=== PATIENT | male | born 1985 | race Caucasian/White ===

== ENCOUNTER → 2019-12-07 | Outpatient (CLI) | payer OTHER ==
[~2019-12-07] MED LIST: ALPRAZOLAM1 MG PO; CELEXA20 MG PO; DILTIAZEM ER180 M2 PO; FLECAINIDE ACE100 MG PO; LIPITOR20 MG PO; OMEPRAZOLE40 MG; TOPROL XL50 MG PO; XANAX1 MG
== END ==
LOC: LAB 14:40
PROVIDERS: ATTEND Internal Medicine Cardiovascular Disease
DX: Z01.812 Encounter for preprocedural laboratory examination (principal); Z20.828 Contact with and (suspected) exposure to other viral communicable diseases

== ENCOUNTER 2019-12-10 16:12 | Inpatient (IN) | payer BC ==
[~2019-12-10] VITALS: Ht 175.3 cm; Wt 99.3 kg
--- NOTE | ~2019-12-10 | P ---
[facility] [place] [address] PROCEDURE REPORT Name: QUINCY LR Room #: 206-P [facility] IN M.R.#: [id number] Admission: 12/10/19 Attend Phys: Kiesha Oleary MD Discharge: 12/11/19 Date of : 83 Report #: [id number] THIS REPORT FOR: cc: Donato Mitchell MD, David B. MD Couchonnal, Luis F. MD ~ CC: Kiesha Mitchell DATE OF SERVICE: 12/11/2019 EP STUDY AND IMPLANTABLE LOOP RECORDER INSERTION PREOPERATIVE DIAGNOSES: 1. Palpitations. 2. Possible supraventricular tachycardia. POSTOPERATIVE DIAGNOSES: 1. Palpitations. 2. Possible supraventricular tachycardia. PROCEDURES PERFORMED: 1. Comprehensive EP studies, CPT code 92191. 2. EP with left atrial pacing and recording, CPT code 10113. 3. Program stimulation pacing after IV drug infusion, CPT code 84444. 4. Implantation of patient activated event recorder, CPT code 57775. HISTORY: The patient is a 34-year-old with history of palpitations, possible SVT and presyncope and syncope who is here for EP study, possible ablation. ANESTHESIA: The patient underwent MAC anesthesia with no anesthesia related complications. DESCRIPTION OF PROCEDURE: The patient underwent informed consent. We discussed the details of the procedure including the risks, which include but not limited to bleeding, vascular damage, stroke, SD as well as damage to yuhaaviatam conduction system requiring permanent pacemaker. He understood these risks and is willing to proceed. The patient was brought to EP laboratory in a fasting and unsedated state, prepped and draped in a sterile fashion. I obtained access to the bilateral femoral veins placing an 8, 7 and 6-Japanese short sheath in the right femoral vein and a 6-Japanese short sheath in the left femoral vein. Under fluoroscopy, I placed 3 quadripolar catheters at the HRA, His and RV positions and decapolar catheter in the coronary sinus with ease. This was utilized for left atrial pacing and recording. [facility] [address] [place] [address] PROCEDURE REPORT Name: QUICNY LR Room #: 206-[facility].#: [id number] Admission: 12/10/19 Attend Phys: Kiesha Oleary MD Discharge: 12/11/19 Date of : 83 Report #: [id number] The patient was in sinus rhythm with sinus cycle length of 610 milliseconds, HI interval 145 milliseconds, QRS duration 94 milliseconds, QT interval 344 milliseconds, AH interval 77 milliseconds, HV interval 45 milliseconds. Atrial pacing was performed and AV block was noted 310 milliseconds. Atrial ERP was noted at 340 milliseconds at [address] cycle length. There was no evidence of any jumps. Double atrial extrastimuli were delivered and no SVT was induced. Ventricular pacing was performed and VA block was noted to be less than 270 milliseconds. Ventricular ERP was noted at 220 milliseconds at [address] cycle length. VA conduction was both midline and decremental. There was no evidence of accessory pathway. Next, isoproterenol was initiated at 2 mcg per minute and AV block was noted at 220 milliseconds. Atrial ERP was noted at 270 milliseconds at a [address] cycle length. Double atrial extrastimuli were delivered and there were occasional single AV james echoes, but no dual AV james echoes and no SVT. VA block was noted to be less than 230 milliseconds. Isoproterenol was then decreased down to 1 mcg per minute and there was no SVT, then I tested on 4 mcg per minute for about 30-40 minutes and then turned off the isoproterenol and continued testing and then after 20 minutes of being off of isoproterenol, we went to 8 mcg per minute of isoproterenol and continued testing. On 8 mcg of isoproterenol AV block was noted to be 210 milliseconds. I continued with aggressive atrial burst pacing, ventricular pacing and I gave up to triple atrial extrastimuli and an occasional single AV james echo was noted. At this time, we had been testing for 2 hours and could not induce any form of SVT. As such, the procedure was concluded. Catheters and sheaths were pulled and hemostasis was obtained and the patient was prepped for implantable loop recorder insertion, injected lidocaine. The device was injected under the skin and a single layer of suture was performed with surgical glue and a dressing placed on the incision site. The device was programmed to look for any forms of SVT greater than 150 beats per minute of more than 16 beats in duration. CONCLUSIONS: 1. No inducible supraventricular tachycardia despite aggressive electrophysiology study lasting 2 hours and high-dose isoproterenol. 2. Normal SA james function. 3. Normal AV james function. 4. Normal His-Purkinje function. 5. No evidence of accessory pathway mediated tachycardia. No evidence of AFib, atrial flutter or atrial tachycardia. 6. Successful implantation of a loop recorder. By: [id number] Simón Ruiz MD /nt
[2019-12-10] MEDS ORDERED: CELEXA20 MG PO (16:49)
[2019-12-10] MEDS ORDERED: DILTIAZEM ER180 M2 PO (16:49)
[2019-12-10] MEDS ORDERED: LIPITOR20 MG PO (16:51)
[2019-12-10] MEDS ORDERED: OMEPRAZOLE40 MG (16:57)
[2019-12-10] MEDS ORDERED: XANAX1 MG (16:58)
[2019-12-10 17:17] LABS: HEMATOCRIT 42.6 % (42.0-52.0); MCH 31.6 pg (26.0-34.0); MCHC 35.1 g/dL (28.0-37.0); MCV 89.8 fL (80.0-100.0); RBC 4.75 mil/uL (4.50-6.00); RDW 13.7 % (10.5-14.5); WBC 10.9 thou/uL (4.0-11.0)
[2019-12-10 17:29] LABS: ANION GAP 10 mmol/L (7-16); BUN 12 mg/dL (7-18); CALCIUM 9.4 mg/dL (8.5-10.1); CHLORIDE 104 mmol/L (98-107); CO2 28 mmol/L (21-32); CREATININE 0.9 mg/dL (0.7-1.3); GLUCOSE 94 mg/dL (74-106); POTASSIUM 4.2 mmol/L (3.5-5.1); SODIUM 142 mmol/L (136-145)
[2019-12-10 17:37] LABS: MAGNESIUM 2.1 mg/dL (1.8-2.4); TROPONIN-I <0.06 ng/mL (<0.06)
[2019-12-10] MEDS ORDERED: FLECAINIDE ACE100 MG PO (20:00)
[2019-12-10] MEDS ORDERED: ALPRAZOLAM1 MG PO (20:01)
[2019-12-11] VITALS (7 sets, daily range): BP systolic 120–142; BP diastolic 56–90
[2019-12-11 00:04] LABS: CHOLESTEROL 209 mg/dL (<200); HDL CHOLESTEROL 50 mg/dL (>40); LDL CHOLESTEROL 141 mg/dL (<100); TC:HDL 4.2 Ratio (Not establshd); TRIGLYCERIDE 92 mg/dL (<150); VLDL 18 mg/dL (<40)
[2019-12-11 00:17] LABS: SERUM ASSESSMENT Clear
--- NOTE | 2019-12-11 07:41 | EKG ---
[facility] [place] [address] ELECTROCARDIOGRAM REPORT Name: QUINCY LR Room #: 206-P ADM IN M.R.#: [id number] Admission: 12/10/19 Attend Phys: Kiesha Oleary MD Discharge: Date of : 83 Report #: [id number] THIS REPORT FOR: cc: Donato Mitchell MD, David B. 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
--- NOTE | 2019-12-11 07:44 | EKG ---
[facility] [place] [address] ELECTROCARDIOGRAM REPORT Name: QUINCY LR Room #: 206-P ADM IN M.R.#: [id number] Admission: 12/10/19 Attend Phys: Kiesha Oleary MD Discharge: Date of : 83 Report #: [id number] THIS REPORT FOR: cc: Donato Mitchell MD, David B. 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[place] 1985 Requested By: Kiesha Oleary Order Number: [id number] MD: Souleymane Odonnell Measurements Intervals [place] Rate: 91 P: 48 MT: 159 QRS: 40 QRSD: 82 T: 11 QT: 321 QTc: 395 Interpretive Statements Sinus tachycardia Atrial premature complexes Compared to ECG 12/10/2019 16:20:54 Atrial premature complex(es) now present Electronically Signed On 12-11-2019 7:44:39 CDT by Souleymane Odonnell [email or web address] <ELECTRONICALLY SIGNED> By: Souleymane Odonnell MD, FACC 12/11/19 0744 1845 1845 Souleymane Odonnell MD, FACC /EPI
[2019-12-11 09:25] LABS: ABSOLUTE NEUTROPHILS 5.1 thou/uL (1.4-8.2); BASOPHILS 0.5 % (0.0-2.0); EOSINOPHILS 2.8 % (0.0-3.0); HEMATOCRIT 46.9 % (42.0-52.0); HEMOGLOBIN 15.5 gm/dL (14.0-18.0); LYMPHOCYTES 29.8 % (24.0-44.0); MCH 30.4 pg (26.0-34.0); MCV 92.1 fL (80.0-100.0); MONOCYTES 11.4 % (1.0-8.0); PLATELET COUNT 361 thou/uL (150-400); POLYS 55.5 % (36.0-66.0); RDW 14.3 % (10.5-14.5); WBC 9.2 thou/uL (4.0-11.0)
[2019-12-11 09:30] LABS: CALCIUM 9.2 mg/dL (8.5-10.1); POTASSIUM 4.4 mmol/L (3.5-5.1)
[2019-12-11 09:31] LABS: APTT 33.4 Seconds (24.5-32.8); PROTIME 10.5 Seconds (9.3-11.4)
[2019-12-11 09:36] LABS: ALBUMIN 3.7 g/dL (3.4-5.0); TOTAL BILIRUBIN 0.5 mg/dL (0.2-1.0); TOTAL PROTEIN 7.8 g/dL (6.4-8.2)
[2019-12-11] MEDS ORDERED: TOPROL XL50 MG PO (10:51)
--- NOTE | 2019-12-11 14:04 | HC ---
[facility] [place] [place] [address] CONSULTATION Name: QUINCY LR Room #: 206-P [facility] IN M.R.#: [id number] Admission: 12/10/19 Attend Phys: Kiesha Oleary MD Discharge: Date of : 83 Report #: [id number] THIS REPORT FOR: cc: Donato Mitchell MD, David B. MD Couchonnal, Luis F. MD ~ CARDIOLOGY CONSULT REASON FOR CONSULTATION: Palpitations. HISTORY OF PRESENT ILLNESS: The patient is a 34-year-old who I recently saw in the clinic and was scheduled for an SVT ablation for today, but presented to the Emergency Room with palpitations and presyncopal symptoms. He presented to the emergency room, he was in sinus rhythm. His labs were within normal limits. He denied any fevers or chills. REVIEW OF SYSTEMS: A 12-point review of systems was performed and was negative other than what is mentioned above. PAST MEDICAL HISTORY: Reviewed. SOCIAL HISTORY: Does not smoke. FAMILY HISTORY: Noncontributory. ALLERGIES: AZITHROMYCIN. MEDICATIONS: Reviewed and he has been off his flecainide therapy. PHYSICAL EXAMINATION: GENERAL: No acute distress. HEENT: Oropharynx clear. NECK: Supple, with no thyromegaly. HEART: Regular rate and rhythm. No murmurs, rubs, gallops. LUNGS: Clear to auscultation bilaterally. ABDOMEN: Soft, nontender, nondistended. EXTREMITIES: No clubbing, cyanosis or edema. A 12-lead EKG showed sinus rhythm with no ischemic changes. LABORATORY DATA: Within normal limits. ASSESSMENT: 1. Palpitations. 2. Possible supraventricular tachycardia. [facility] [address] [place] [address] CONSULTATION Name: QUINCY LR Room #: 206-P ADM IN .R.#: [id number] Admission: 12/10/19 Attend Phys: Kiesha Oleary MD Discharge: Date of : 83 Report #: [id number] 3. Anxiety. 4. Presyncope. PLAN: We will proceed with his EP study. If he has inducible SVT, we will ablate this. If he has no documented arrhythmias, then it is possible that the patient is having anxiety for his palpitations. I have recommended that if he is not inducible, then we will implant an implantable loop recorder to look for possible other forms of SVT as well as atrial fibrillation and also to evaluate his presyncopal and prior syncopal episodes. We discussed the details of the ablation and implantable loop recorder. He understands and is willing to proceed. <ELECTRONICALLY SIGNED> By: Simón Ruiz MD 12/11/19 1404 1054 1251 Simón Ruiz MD /nt
--- NOTE | 2019-12-11 17:34 | NUR ---
ASSESSMENT CHARTED. PT ALERT AND ORIENTED. VSS. RIGHT AND LEFT GROIN INCISION C/D/I. NO HEMATOMA NOTED. NSR ON TELE. PRN PAIN MED GIVEN FOR LOWER BACK PAIN WITH PARTIAL RELIEF. ORDERS GIVEN TO DISCHARGE PT TO HOME. DISCHARGE INSTRUCTIONS GIVEN TO PT. PT VERBERLISED UNDERSTANDING.
== END 2019-12-11 18:06 | disposition home or self-care (01) | DRG 274 ==
LOC: ER 16:12 → EROBS 19:52 → 2N 19:52
PROVIDERS: Emergency Medicine; Internal Medicine Cardiovascular Disease; Nurse Practitioner Family; ADMIT Hospitalist; ATTEND Hospitalist
PROC: 4A0234Z Measurement of Cardiac Electrical Activity, Percutaneous Approach (ICD-10-PCS; principal; 2019-12-11)
PROC: 0JH602Z Insertion of Monitoring Device into Chest Subcutaneous Tissue and Fascia, Open Approach (ICD-10-PCS; principal; 2019-12-11)
PROC: 4A023FZ Measurement of Cardiac Rhythm, Percutaneous Approach (ICD-10-PCS; principal; 2019-12-11)
DX: I47.1 Supraventricular tachycardia (principal); Z88.1 Allergy status to other antibiotic agents; F41.9 Anxiety disorder, unspecified; E78.5 Hyperlipidemia, unspecified; I10 Essential (primary) hypertension; I48.91 Unspecified atrial fibrillation; K21.9 Gastro-esophageal reflux disease without esophagitis; Z79.899 Other long term (current) drug therapy
CPT/HCPCS: 70005

== ENCOUNTER → 2019-12-28 | Outpatient (CLI) | payer BC ==
[~2019-12-28] MED LIST changes: +DILTIAZEM 24HR180 M1 PO
== END ==
LOC: LAB 07:51
PROVIDERS: ATTEND Internal Medicine Cardiovascular Disease
DX: Z01.812 Encounter for preprocedural laboratory examination (principal); Z20.828 Contact with and (suspected) exposure to other viral communicable diseases

== ENCOUNTER → 2020-01-01 | Outpatient (CLI) | payer BC ==
--- NOTE | 2020-01-04 13:31 | P ---
[facility] [place] [address] PROCEDURE REPORT Name: QUINCY LR Room #: REG [facility]#: [id number] Admission: 01/01/20 Attend Phys: Simón Ruiz MD Discharge: Date of : 83 Report #: [id number] THIS REPORT FOR: cc: Donato Mitchell MD, David B. MD Couchonnal, Luis F. MD ~ CC: Donato Ruiz SUPRAVENTRICULAR TACHYCARDIA ABLATION PREOPERATIVE DIAGNOSIS: Supraventricular tachycardia. POSTOPERATIVE DIAGNOSIS: Typical atrioventricular james reentrant tachycardia. PROCEDURES PERFORMED: 1. SVT ablation, CPT code 38658. 2. EP with left atrial pacing and recording, CPT code 37152. 3. Program stimulation pacing after IV drug infusion, CPT code 20465. 4. A 3D mapping, CPT code 71190. HISTORY OF PRESENT ILLNESS: The patient is a 34-year-old recently here for EP study and was non-inducible and underwent an implantable loop recorder insertion. The patient had multiple documented episodes of SVT suggestive of AV james reentrant tachycardia and he is here for repeat EP study and ablation. ANESTHESIA: The patient underwent MAC anesthesia with no anesthesia related complications. DESCRIPTION OF PROCEDURE: The patient underwent informed consent. We discussed the details of the procedure including the risks, which included but not limited to bleeding, infection, vascular damage, cardiac perforation, stroke, PR as well as damage to la posta conduction system requiring permanent pacemaker. He understood these risks and is willing to proceed. The patient was brought to EP laboratory in fasting and sedated state, prepped and draped in a sterile fashion. I obtained access to the right femoral vein x 4; placing an 8, two 6 and a 7-Argentine short sheath in the right femoral vein using the modified Seldinger technique. Next, under fluoroscopy, 3 quadripolar catheters were placed at the HRA, His, and RV position and decapolar catheter placed in the coronary sinus for left atrial pacing and recording. Basic EP study was performed. At baseline, the patient was in sinus rhythm with sinus cycle length of 710 milliseconds, CA interval 165 milliseconds, QRS duration 83 milliseconds, QT interval 350 milliseconds, AH interval 81 milliseconds, HV interval 40 milliseconds. Next, atrial burst pacing was performed and AV block was noted at 330 milliseconds. Next with atrial burst pacing, the patient went into SVT with a tachycardia cycle length of 330 milliseconds and a septal [facility] [address] [place] [address] PROCEDURE REPORT Name: LRQUINCY Geetha [id number] Admission: 01/01/20 Attend Phys: Simón Ruiz MD Discharge: Date of : 83 Report #: [id number] time of 35 milliseconds. This appeared consistent with AVNRT. I attempted to entrain this, but this terminated the tachycardia. This was surprising as he had recently been in and we attempted to induce him for 2 hours on high-dose isoproterenol and we could not induce AVNRT. I suspect that he must had been given some antiarrhythmic drug prior to the prior ablation when he came in to our hospital via ambulance. Next, single atrial extrastimuli were delivered and atrial ERP was noted at 290 milliseconds at [address] cycle length. Ventricular pacing was performed and VA block was noted at 290 milliseconds. Ventricular ERP was noted at 230 milliseconds at [address] cycle length. Next, isoproterenol infusion was initiated at 2 mcg per minute and again SVT was induced with a tachycardia cycle length of 330 milliseconds and septal VA time of 35 milliseconds. At this time, I could easily and reproducibly entrain the tachycardia demonstrating a VAHV response consistent with typical AVNRT. Isoproterenol infusion was turned off. THREE-D MAPPING AND ABLATION: Next, I removed the HRA catheter and placed a SR0 and 4-mm Biosense Tariq ablation catheter into the right atrium. I created a 3D geometry of the right atrium with specific emphasis of the His bundle and slow pathway region. I found a nice slow pathway potential. We performed ablation at this site and we had approximately 60 seconds of a continuous junctionals. I performed a total of 5 ablation lesions, all with very good junctionals throughout and therefore, post-ablation testing was then performed. Post-ablation, the patient was still in sinus rhythm. Atrial burst pacing was performed and AV block was noted at 300 milliseconds. Isoproterenol infusion was reinitiated and AV block was noted at 260 milliseconds. Atrial ERP was noted at 190 milliseconds at [address] cycle length. Aggressive atrial pacing maneuvers were performed on isoproterenol and we could no longer induce AVNRT. We had occasional single AV james echoes noted. Post-ablation, isoproterenol infusion was discontinued. I continued testing. Post-ablation, the patient was in sinus rhythm, sinus cycle length of 625 milliseconds, CA interval 120 milliseconds, QRS duration 80 milliseconds, QT interval 340 milliseconds, AH interval 80 milliseconds, HV interval 40 milliseconds. As such, catheters and sheaths were pulled. Hemostasis was obtained. The patient awoke neurologically and hemodynamically intact. No complications and no significant bleeding. CONCLUSIONS: Successful ablation of typical AV james reentrant tachycardia. <ELECTRONICALLY SIGNED> By: Simón Ruiz MD 01/04/20 1331 1007 0250 Simón Ruiz MD /nt
== END | disposition home or self-care (01) ==
LOC: CATH 06:25
PROVIDERS: ATTEND Internal Medicine Cardiovascular Disease
DX: I47.1 Supraventricular tachycardia (principal); I10 Essential (primary) hypertension; E78.5 Hyperlipidemia, unspecified; I48.91 Unspecified atrial fibrillation; K21.9 Gastro-esophageal reflux disease without esophagitis; F41.9 Anxiety disorder, unspecified; Z98.890 Other specified postprocedural states; Z79.899 Other long term (current) drug therapy; Z79.01 Long term (current) use of anticoagulants
CPT/HCPCS: 62110; 62900; 70005